=== PATIENT | female | born 1945 | race Hispanic/Latino ===

== ENCOUNTER 2017-02-09 07:27 | Inpatient (IN) | payer MEDICARE, MEDICAID ==
[2017-02-03 10:31] VITALS: BMI 19.5
[2017-02-09] MEDS ORDERED: Iodixanol 320 MG/ML 100 ML BOTTLE IV ONE ×2 (07:53→11:56)
[2017-02-09] MEDS ORDERED: Phenylephrine 10 mg/ml Inj ONE (08:02)
[2017-02-09] MEDS ORDERED: Dexmedetomidine Hydrochloride 100 mcg/ml (2ML) ONE (08:03)
[2017-02-09] MEDS ORDERED: ePHEDrine 50 mg/ml Inj ONE ×2 (08:03→14:47)
[2017-02-09] MEDS ORDERED: Succinylcholine Chloride 20 mg/ml Syr (5 ml) IV ONE (08:03)
[2017-02-09] MEDS ORDERED: Midazolam 2 MG/2 ML VIAL ONE ×5 (08:04→09:04)
[2017-02-09] MEDS ORDERED: Metoprolol 1 mg/ml Inj IVP ONE (08:04)
[2017-02-09] MEDS ORDERED: Lidocaine 2% Inj (20ml) ONE ×2 (08:52→08:56)
[2017-02-09] MEDS ORDERED: Iodixanol 320 MG/ML 200 ML BOTTLE IV ONE ×2 (10:01→11:55)
--- NOTE | 2017-02-09 10:44 | PCM.SURG1 ---
Surgeon's Initial Post Op Note - Surgeon's Notes Surgeon: joanie diehl Returned Materials Inspector: 0 Type of Anesthesia: IV Sedation Pre-Operative Diagnosis: chronic mesenteric ischemia Operative Findings: celiac open. 60-70% sma stenosis. domenic occluded Post-Operative Diagnosis: same Operation Performed: aortogram. balloon angioplasty and 7x19 stent to sma. perclose left axillary Specimen/Specimens Removed: 0 Estimated Blood Loss: EBL {In ML}: 25 Blood Products Given: N/A Drains Used: No Drains Post-Op Condition: Good Date of Surgery/Procedure: 02/09/17 Time of Surgery/Procedure: 10:44
[2017-02-09] MEDS ORDERED: HEPARIN-NS 5,000 UNITS/500 ML 500 ML IV ONE (12:30)
[2017-02-09] MEDS ORDERED: Propofol 10 mg/ml Inj (20 ML) ONE (12:39)
[2017-02-09] MEDS ORDERED: Rocuronium 10 mg/ml (5 ml) ONE ×2 (12:39→14:45)
[2017-02-09] MEDS ORDERED: Etomidate 20 mg/10ml Inj IV ONE (12:41)
[2017-02-09] MEDS ORDERED: Lactated Ringer's 1,000 ML IV ONE ×2 (13:15→14:45)
[2017-02-09] MEDS ORDERED: Sodium Chloride 0.9% 500 ML IV ONE (14:00)
[2017-02-09] MEDS ORDERED: Sodium Chloride 0.9% 1,000 ML IV ONE (15:30)
[2017-02-09] MEDS ORDERED: Thrombin Topical 20,000 Intl Units Spray Kit TOP ONE (15:48)
[2017-02-09] MEDS ORDERED: Neostigmine Methylsulfate 3mg/3ml Syringe IV ONE (15:49)
[2017-02-09] MEDS ORDERED: HYDROmorphone 0.5 mg/0.5 ml ISec IVP PRN (16:16)
--- NOTE | 2017-02-09 16:46 | CP.PCM.CON ---
<Turner Naranjo - Last Filed: 02/09/17 19:30> History of Present Illness - History of Present Illness History of Present Illness: CRITICAL CARE CONSULT NOTE 72 year old female with PMHx significant for anemia, PUD HCV and HIV presents s /p exploration and repair of L brachial artery with vein patch angioplasty for critical care monitoring. Patient briefly states that she had been experiencing abdominal pain associated with meals or several months . Patient states that the pain became so unbearable that she stopped eating regularly patient states that she visited her PMD who referred her to Dr. Benjamin for further indicated surgical management of symptoms. Currently patient is nauseous. Otherwise, she denies subjective fevers or chills, headaches, chest pain, palpitations, dyspnea , paresthesias, visual changes or abdominal pain at this time. PMHX- as noted above PSHX- hysterectomy, bilateral benign cysts in breasts, appendectomy, neck surgery, ankle surgery Fam Hx- Mom had Parkinson's disease and Alzhiemer's; Dad had emphysema Social- denies tobacco, alcohol or illicit drug use. Allergies- NKDA Review of Systems - Review of Systems Review of Systems: see subjective - Constitutional Constitutional: absent: Sleep Apnea, Weight Gain - EENT Eyes: absent: Blind Spots, Blurred Vision Ears: absent: Decreased Hearing, Ear Discharge Nose/Mouth/Throat: absent: Epistaxis, Nasal Congestion - Cardiovascular Cardiovascular: absent: Chest Pain, Chest Pain at Rest - Respiratory Respiratory: absent: Hemoptysis, Chest Congestion - Gastrointestinal Gastrointestinal: Nausea. absent: Vomiting - Genitourinary Genitourinary: absent: Change in Urinary Stream, Difficulty Urinating - Neurological Neurological: Tremor - Psychiatric Psychiatric: absent: Anhedonia, Anxiety, Confusion Past Patient History - Infectious Disease Hx of Infectious Diseases: None - Tetanus Immunizations Tetanus Immunization: Up to Date - Past Medical History & Family History Past Medical History?: Yes - Past Social History Smoking Status: Never Smoked - CARDIAC Hx Cardiac Disorders: No Hx Hypercholesterolemia: Yes Hx Hypertension: Yes Hx Hypotension: No Hx Pacemaker: No - PULMONARY Hx Respiratory Disorders: Yes Hx Bronchitis: Yes Hx Chronic Obstructive Pulmonary Disease (COPD): Yes Hx Emphysema: Yes Hx Tuberculosis: No - NEUROLOGICAL Hx Dementia: Yes Hx Dizziness: Yes Other/Comment: intermittent hand tremors "from anxiety" stated pt - HEENT Hx HEENT Problems: Yes (eyeglasses) Hx Cataracts: Yes Hx Glaucoma: Yes - RENAL Hx Chronic Kidney Disease: No - ENDOCRINE/METABOLIC Hx Endocrine Disorders: No Hx Diabetes Mellitus Type 2: Yes (borderline) - HEMATOLOGICAL/ONCOLOGICAL Hx Blood Disorders: Yes Hx Anemia: Yes Hx Cancer: No Hx Hepatitis C: Yes - INTEGUMENTARY Hx Dermatological Problems: No - MUSCULOSKELETAL/RHEUMATOLOGICAL Hx Musculoskeletal Disorders: Yes Hx Arthritis: Yes Hx Back Pain: Yes (chronic) Hx Degenerative Joint Disease: Yes Hx Falls: Yes Hx Fractures: Yes (LEFT BIG TOE IS FRACTURED) Hx Osteoporosis: Yes Hx Unsteady Gait: Yes (cane) Other/Comment: left ankle fx with plate and screws from fall around 8 yrs ago - GASTROINTESTINAL Hx Gastrointestinal Disorders: Yes Hx Gastritis: Yes Hx Gastroesophageal Reflux: No HX Swallowing Problems: Yes Hx Ulcer: Yes Other/Comment: mesenteric ischemia - GENITOURINARY/GYNECOLOGICAL Hx Genitourinary Disorders: Yes (ovarian cyst, urgency) Hx Sexually Transmitted Disorders: No Other/Comment: benign b/l breat lumps removed "yrs ago" - PSYCHIATRIC Hx Psychophysiologic Disorder: Yes Hx Anxiety: Yes Hx Depression: Yes Hx Substance Use: Yes (benzo) Other/Comment: sleep disorder - SURGICAL HISTORY Hx Surgeries: Yes Hx Appendectomy: Yes Hx Dilation and Curettage: Yes Hx Hysterectomy: Yes Hx Musculoskeletal Surgery: Yes (cervical laminectomy) Hx Open Reduction Internal Fixation: Yes (left) Hx Orthopedic Surgery: Yes (left ankle with scrrews from fall fx) Other/Comment: neck sx - ANESTHESIA Hx Anesthesia: Yes Hx Anesthesia Reactions: No Hx Malignant Hyperthermia: No Has any member of the family had a problem w/ anesthesia?: No Meds Allergies/Adverse Reactions: Allergies Allergy/AdvReac Type Severity Reaction Status Date / Time No Known Allergies Allergy Verified 12/17/16 07:37 - Medications Medications: Current Medications Lactated Ringer's (Lactated Ringer's) 1,000 mls @ 125 mls/hr IV .Q8H [facility] Physical Exam - Constitutional Appears: Non-toxic, No Acute Distress - Head Exam Head Exam: ATRAUMATIC, NORMAL INSPECTION, NORMOCEPHALIC - Eye Exam Eye Exam: EOMI, Normal appearance, PERRL Pupil Exam: NORMAL ACCOMODATION, PERRL - ENT Exam ENT Exam: Mucous Membranes Dry - Neck Exam Neck exam: Positive for: Full Rom - Respiratory Exam Respiratory Exam: NORMAL BREATHING PATTERN. absent: Clear to Auscultation Bilateral - Cardiovascular Exam Cardiovascular Exam: +S1, +S2 - GI/Abdominal Exam GI & Abdominal Exam: Normal Bowel Sounds, Soft. absent: Distended, Firm, Guarding - Extremities Exam Extremities exam: Positive for: full ROM. Negative for: joint swelling Additional comments: radial pulses felt b/l; dressing site c/d/i - Neurological Exam Neurological exam: Alert, CN II-XII Intact, Oriented x3 - Psychiatric Exam Psychiatric exam: Normal Affect, Normal Mood - Skin Skin Exam: Dry Additional comments: decreased skin turgor Results - Vital Signs Recent Vital Signs: Last Vital Signs Temp 98.8 F 02/09/17 07:48 Pulse 85 02/09/17 07:48 Resp 18 02/09/17 07:48 BP 143/87 02/09/17 07:48 Pulse Ox 99 02/09/17 07:48 - Labs Result Diagrams: 02/09/17 18:37 02/09/17 18:37 Labs: Laboratory Results - last 24 hr 02/09/17 13:45 Blood Type O POSITIVE Antibody Screen Negative Assessment & Plan - Assessment and Plan (Free Text) Assessment: 72 year old female with chronic mesenteric ischemia presents s/p exploration and repair of L brachial artery with vein patch angioplasty to ICU for critical care monitoring. Plan: Neuro: aaox3 Cardio: normotensive Cont to monitor Pulm: no focal airspace opacity noted on last CXR from 12/22/16 Incentive spirometry encouraged O2 as needed PRN GI: Regular diet Protonix due to hx of PUD Zofran PRN Nephro/; Monitor ins and outs GFR WNL MSK: PT/OT eval recommended Vasc: Plavix, ASA s/p procedure Cont to monitor management per surg Pain control- Pt w/ Hx of opioid use Prophylaxis: GI: PPI DVT: SCDs <Ken Mccoy - Last Filed: 02/10/17 10:22> Meds - Medications Medications: Current Medications Aspirin (Aspirin Chewable) 81 mg PO DAILY [facility] Clopidogrel Bisulfate (Plavix) 75 mg PO DAILY [facility] Hydromorphone HCl (Dilaudid) 1 mg IVP Q4H PRN PRN Reason: Pain, severe (8-10) Last Admin: 02/10/17 05:04 Dose: 1 mg Lactated Ringer's (Lactated Ringer's) 1,000 mls @ 125 mls/hr IV .Q8H BEST Last Admin: 02/10/17 00:12 Dose: 125 mls/hr Sodium Phosphate 15 mmole/ (Sodium Chloride) 255 mls @ 50 mls/hr IVPB .Q5H6M ONE Stop: 02/10/17 15:05 Ondansetron HCl (Zofran Inj) 4 mg IVP Q6H PRN PRN Reason: Nausea/Vomiting Last Admin: 02/10/17 07:00 Dose: 4 mg Pantoprazole Sodium (Protonix Ec Tab) 40 mg PO DAILY [facility] Results - Vital Signs Recent Vital Signs: Last Vital Signs Temp 98.4 F 02/10/17 09:37 Pulse 103 H 02/10/17 09:03 Resp 13 02/10/17 09:03 BP 150/80 02/10/17 09:03 Pulse Ox 100 02/10/17 09:03 - Labs Result Diagrams: 02/10/17 06:38 02/10/17 06:38 Labs: Laboratory Results - last 24 hr 02/09/17 02/09/17 02/10/17 13:45 18:37 06:38 WBC 7.8 D 5.3 RBC 3.46 L 2.88 L Hgb 9.2 L D 7.6 L Hct 28.2 L 23.3 L MCV 81.7 80.8 L MCH 26.6 L 26.2 L MCHC 32.6 L 32.5 L RDW 16.4 H 15.9 H Plt Count 109 L D 140 MPV 8.5 8.9 Neut % (Auto) 89.9 H 85.2 H Lymph % (Auto) 6.1 L 6.8 L [place] % (Auto) 3.7 7.9 Eos % (Auto) 0.1 0.0 Baso % (Auto) 0.2 0.1 Neut # 7.0 4.5 Lymph # 0.5 L 0.4 L [place] # 0.3 0.4 Eos # 0.0 0.0 Baso # 0.0 0.0 Neutrophils % (Manual) 92 H 89 H Lymphocytes % (Manual) 5 L 5 L Monocytes % (Manual) 3 6 Platelet Estimate Slightly decreased L Normal Hypochromasia (manual) Slight Poikilocytosis (manual Slight Slight Anisocytosis (manual) Slight Slight Microcytosis (manual) Slight Ovalocytes Slight Sodium 136 136 Potassium 3.4 L 4.1 Chloride 104 105 Carbon Dioxide 19 L 18 L Anion Gap 16 17 BUN 9 7 Creatinine 0.6 L 0.5 L Est GFR ( Amer) > 60 > 60 Est GFR (Non-Af Amer) > 60 > 60 Random Glucose 141 H 113 H Calcium 7.0 L 6.8 L Phosphorus 1.9 L 1.9 L Magnesium 1.7 1.5 L Total Bilirubin 0.7 0.5 AST 24 17 ALT 13 17 Alkaline Phosphatase 44 35 L D Total Protein 5.7 L 5.1 L Albumin 3.4 L D 2.9 L Globulin 2.4 2.2 Albumin/Globulin Ratio 1.4 1.3 Blood Type O POSITIVE Antibody Screen Negative Attending/Attestation - Attestation I have personally seen and examined this patient.: Yes I have fully participated in the care of the patient.: Yes I have reviewed all pertinent clinical information: Yes Notes (Text): patient seen and examined in the intensive care unit. 72 year old female with chronic mesenteric ischemia presents s/p exploration and repair of L brachial artery with vein patch angioplasty and balloon angioplasty and 7x19 stent to sma Transferred to ICU for critical care monitoring. follow-up CBC Continue present treatmentas per surgery
--- NOTE | 2017-02-09 16:54 | PCM.SURG1 ---
Surgeon's Initial Post Op Note - Surgeon's Notes Surgeon: Dr. Benjamin Drill Runner Helper: Dr. Bob PGY1, Dr. Snyder PGY1 Type of Anesthesia: General Endo Pre-Operative Diagnosis: occluded L brachial artery Operative Findings: see dictation Post-Operative Diagnosis: occluded L brachial artery Operation Performed: exploration and repair of L brachial artery with vein patch angioplasty Specimen/Specimens Removed: two Estimated Blood Loss: EBL {In ML}: 250 Blood Products Given: N/A Drains Used: No Drains Post-Op Condition: Good Date of Surgery/Procedure: 02/09/17 Time of Surgery/Procedure: 13:10
[2017-02-09] MEDS: Lactated Ringer's 1,000 ML IV SCH (17:00)
--- NOTE | 2017-02-09 17:24 | PCM.SURG1 ---
Surgeon's Initial Post Op Note - Surgeon's Notes Surgeon: markus Pe Teacher: 0 Type of Anesthesia: IV Sedation Anesthesia Administered By: staff Pre-Operative Diagnosis: left brachial occlusion Operative Findings: occlusion brachial artery at puncture site Post-Operative Diagnosis: same Operation Performed: arch aortogram. selective catherization of left subclavian artery Specimen/Specimens Removed: 0 Estimated Blood Loss: EBL {In ML}: 0 Blood Products Given: N/A Drains Used: No Drains Post-Op Condition: Good Date of Surgery/Procedure: 02/09/17 Time of Surgery/Procedure: 12:00 (after 1st and before surgery)
[2017-02-09 18:42] LABS: BASO % 0.2 % (0.0-2.0); EOS % 0.1 % (0.0-4.0); HEMATOCRIT 28.2 % (34.0-47.0); LYMPH # 0.5 K/uL (1.0-4.3); LYMPH % 6.1 % (20.0-40.0); MEAN CELL VOLUME 81.7 fL (81.0-99.0); MEAN CORPUSCULAR HEMOGLOBIN 26.6 pg (27.0-31.0); MEAN CORPUSCULAR HGB CONC 32.6 g/dL (33.0-37.0); MEAN PLATELET VOLUME 8.5 fL (7.2-11.7); MONO # 0.3 K/uL (0.0-0.8); MONO % 3.7 % (0.0-10.0); NRBC % 0.1 % (0.0-2.0); PLATELET COUNT 109 K/uL (130-400); RED CELL DISTRIBUTION WIDTH 16.4 % (11.5-14.5); WHITE BLOOD COUNT 7.8 K/uL (4.8-10.8)
[2017-02-09 18:53] LABS: CHLORIDE 104 mmol/L (98-107); SODIUM 136 mmol/L (132-148)
[2017-02-09 18:54] LABS: POTASSIUM 3.4 mmol/L (3.6-5.2)
[2017-02-09 18:55] LABS: GFR AFRICAN-AMERICAN > 60
[2017-02-09 18:56] LABS: ALB/GLOB RATIO 1.4 (1.0-2.1); ALKALINE PHOSPHATASE 44 U/L (38-126); ALT/SGPT 13 U/L (9-52); AST/SGOT 24 U/L (14-36); BILIRUBIN,TOTAL 0.7 mg/dL (0.2-1.3); BLOOD UREA NITROGEN 9 mg/dL (7-17); CARBON DIOXIDE 19 mmol/L (22-30); GLUCOSE,RANDOM 141 mg/dL (65-105); TOTAL PROTEIN 5.7 g/dL (6.3-8.3)
[2017-02-09 18:57] LABS: MAGNESIUM 1.7 mg/dL (1.6-2.3); PHOSPHOROUS 1.9 mg/dL (2.5-4.5)
[2017-02-09] MEDS: HYDROmorphone 1 mg/ml ISec IVP PRN ×2 (19:01→23:00)
[2017-02-09 19:55] LABS: NEUTROPHIL 92 % (50-75); TOTAL CELLS COUNTED 100
--- NOTE | 2017-02-09 20:13 | VAS ---
DATE: 02/09/2017 PREOPERATIVE DIAGNOSIS: Chronic mesenteric ischemia. POSTOPERATIVE DIAGNOSIS: Chronic mesenteric ischemia. PROCEDURE CARRIED OUT: Aortic angiogram with selective catheterization of superior mesenteric artery via left axillary artery. SURGEON: Elia Benjamin Jr., MD COSURGEON: Dr. Alcocer ANESTHESIOLOGIST: Staff anesthesiologist, Dr. Mcpherson. ANESTHESIA: Local with sedation. INDICATIONS: The patient is a 72-year-old woman, nonsmoker with a history of severe abdominal pain, 30-pound weight loss and postprandial nausea and vomiting. OPERATIVE FINDINGS: Preoperatively, studies including a duplex scan were inconclusive, but a CTA don e was highly suggestive of stenosis at both the origin of the celiac and the SMA, and occlusion of th e inferior mesenteric artery. OPERATIVE FINDINGS: There is no significant stenosis at the origin of the celiac artery. There is a 60%-70% stenosis of the superior mesenteric artery. The CORBY was occluded. This was successfully st ented with a 7 mm x 19 mm stent, good apposition. PROCEDURE: The patient was given local anesthesia. Using ultrasound guidance, the left axillary art marilyn was punctured and under fluoroscopic control, the guidewire advanced centrally. After this had b een advanced centrally, we then were able to go down to the aorta, placed a flush catheter just above the celiac axis and carried out an angiogram. There was some difficulty with the equipment due to t he tilt available and the obliquities available, so we could not get a true cross table lateral. Non etheless, we were able to obtain adequate visualization of the vessel. We then exchanged this for an 0.014 wire and then deployed a balloon expandable 7 x 19 stent at the origin of the superior mesente miri artery with excellent cosmetic results. We then deployed a Perclose in the arm. Pressure was applied to the site and the procedure was terminated. OPERATION CARRIED OUT: Aortogram with selective catheterization of the superior mesenteric artery, b alloon angioplasty and stenting of the superior mesenteric artery. Elia Benjamin Jr., MD cc: 56 TT: 02/09/2017 20:13:27 Confirmation # [id number] Dictation # [id number] en
--- NOTE | 2017-02-09 20:16 | VAS ---
DATE: 02/09/2017 PREOPERATIVE DIAGNOSIS: Occlusion left brachial artery. POSTOPERATIVE DIAGNOSIS: Occlusion left brachial artery. PROCEDURE CARRIED OUT: Arch aortogram with selective catheterization of left axillary and subclavian artery. SURGEON: Elia Benjamin Jr., MD COSURGEON: Dr. Alcocer ANESTHESIOLOGIST: Staff anesthesiologist, . The patient is a woman who underwent transaxillary puncture of her brachial/axillary artery for an an giogram with superior mesenteric artery stenting today. Postoperatively, she had a loss of flow in t he hand and this angiogram was undertaken to evaluate the site. There was an abrupt occlusion of the artery. However, there was flow distal to it, but despite the use of a number of wires, etc., we we re unable to cross this lesion and abandoned the procedure. The arch showed that there was an innomi abhilash artery, common carotid, and subclavian artery on the left side. There was no significant stenos is. There was an abrupt occlusion of the brachial artery at the site of the puncture. Distally, we were unable to advance the catheter distally to take pictures of the hand, but there was opacificatio n via collaterals. After completion of this, the catheter was withdrawn and pressure was applied to the site in the right groin. Elia Benjamin Jr., MD cc: 56 TT: 02/09/2017 20:16:30 Confirmation # [id number] Dictation # [id number] en
--- NOTE | 2017-02-09 20:20 | OP ---
PROCEDURE DATE: 02/09/2017 PREOPERATIVE DIAGNOSIS: Brachial artery occlusion. POSTOPERATIVE DIAGNOSIS: Brachial artery occlusion. PROCEDURE CARRIED OUT: Repair of brachial artery and basilic vein patch closure. SURGEON: Elia Benjamin Jr., MD GROUP RESERVATIONS COORDINATOR: Dr. Bob, resident ANESTHESIOLOGIST: ANESTHESIA: General anesthesia. INDICATIONS: The patient is a woman who underwent transaxillary and transfemoral angiography today for an occlusion of the brachial arterythat occurred while stenting the superior mesenteric artery, we were unable to cross this arm lesion or treat it endovascularly because of this and we proceeded with open surgical repair. OPERATIVE FINDINGS: There was approximately an inch long segment that was irregular after a Perclose device deployed had scrunched up the artery at this point. Perclose device was removed. A posterior hole closed in the artery. Clean ends were obtained above and below and an everted basilic vein patch was then sutured into position in this location with excellent apposition, good hemostasis and more importantly, palpable pulses distally to it. Because we had a palpable pulse distal to the site at the wrist, we did not carry out an angiogram, but stopped the procedure. Blood loss of the procedure was approximately 100 mL. OPERATION CARRIED OUT: Repair of left axillary/brachial artery with vein patch angioplasty. Elia Benjamin Jr., MD cc: 56 TT: 02/09/2017 20:20:00 en MTDD
[2017-02-10] MEDS: Lactated Ringer's 1,000 ML IV SCH ×2 (00:12→10:33)
[2017-02-10] MEDS: HYDROmorphone 1 mg/ml ISec IVP PRN ×2 (05:04→10:34)
[2017-02-10 06:47] LABS: BASO % 0.1 % (0.0-2.0); HEMATOCRIT 23.3 % (34.0-47.0); LYMPH # 0.4 K/uL (1.0-4.3); LYMPH % 6.8 % (20.0-40.0); MEAN CELL VOLUME 80.8 fL (81.0-99.0); MEAN CORPUSCULAR HEMOGLOBIN 26.2 pg (27.0-31.0); MEAN CORPUSCULAR HGB CONC 32.5 g/dL (33.0-37.0); MEAN PLATELET VOLUME 8.9 fL (7.2-11.7); MONO # 0.4 K/uL (0.0-0.8); MONO % 7.9 % (0.0-10.0); PLATELET COUNT 140 K/uL (130-400); RED CELL DISTRIBUTION WIDTH 15.9 % (11.5-14.5); WHITE BLOOD COUNT 5.3 K/uL (4.8-10.8)
[2017-02-10 07:03] LABS: CHLORIDE 105 mmol/L (98-107); SODIUM 136 mmol/L (132-148)
[2017-02-10 07:04] LABS: POTASSIUM 4.1 mmol/L (3.6-5.2)
[2017-02-10 07:05] LABS: GFR AFRICAN-AMERICAN > 60
[2017-02-10 07:06] LABS: ALB/GLOB RATIO 1.3 (1.0-2.1); ALKALINE PHOSPHATASE 35 U/L (38-126); ALT/SGPT 17 U/L (9-52); AST/SGOT 17 U/L (14-36); BILIRUBIN,TOTAL 0.5 mg/dL (0.2-1.3); BLOOD UREA NITROGEN 7 mg/dL (7-17); CALCIUM 6.8 mg/dl (8.6-10.4); CARBON DIOXIDE 18 mmol/L (22-30); GLUCOSE,RANDOM 113 mg/dL (65-105); PHOSPHOROUS 1.9 mg/dL (2.5-4.5); TOTAL PROTEIN 5.1 g/dL (6.3-8.3)
[2017-02-10 07:07] LABS: MAGNESIUM 1.5 mg/dL (1.6-2.3)
--- NOTE | 2017-02-10 08:51 | CP.CCUPN ---
CCU Objective - Vital Signs / Intake & Output Vital Signs (Last 4 hours): Vital Signs Pulse Resp BP Pulse Ox 02/10/17 05:03 92 H 22 131/64 100 02/10/17 05:00 101 H 13 100 Intake and Output (Last 8hrs): Intake & Output 02/09/17 02/10/17 02/10/17 22:59 06:59 14:59 Intake Total 780 1030 125 Output Total 0 1050 0 Balance 780 -20 125 Weight 112 lb 6.972 oz Intake: Intake, IV Amount 750 1000 125 Right Hand 750 1000 125 Oral 30 30 0 Output: Urine 0 1050 0 Urine, Voided 0 1050 0 Stool 0 0 0 - Medications Active Medications: Active Medications Generic Name Dose Route Start Last Admin Trade Name Freq PRN Reason Stop Dose Admin Aspirin 81 mg 02/10/17 10:00 Aspirin Chewable PO DAILY [facility] Clopidogrel Bisulfate 75 mg 02/10/17 10:00 Plavix PO DAILY [facility] Hydromorphone HCl 1 mg 02/09/17 17:00 02/10/17 05:04 Dilaudid IVP 1 mg Q4H PRN Administration Pain, severe (8-10) Lactated Ringer's 1,000 mls @ 125 mls/hr 02/09/17 16:30 02/10/17 00:12 Lactated Ringer's IV 125 mls/hr .Q8H BEST Administration Magnesium Sulfate/Dextrose 100 mls @ 200 mls/hr 02/10/17 08:50 Magnesium Sulfate 1 Gm/100 Ml D5w IVPB 02/10/17 09:19 ONCE ONE Sodium Phosphate 15 mmole/ 255 mls @ 50 mls/hr 02/10/17 08:50 Sodium Chloride IVPB 02/10/17 13:55 .Q5H6M ONE Ondansetron HCl 4 mg 02/09/17 17:00 02/10/17 07:00 Zofran Inj IVP 4 mg Q6H PRN Administration Nausea/Vomiting Pantoprazole Sodium 40 mg 02/10/17 10:00 Protonix Ec Tab PO DAILY [facility] - Patient Studies Lab Studies: Lab Studies 02/10/17 02/09/17 02/09/17 Range/Units 06:38 18:37 13:45 WBC 5.3 7.8 D (4.8-10.8) K/uL RBC 2.88 L 3.46 L (3.80-5.20) Mil/uL Hgb 7.6 L 9.2 L D (11.0-16.0) g/dL Hct 23.3 L 28.2 L (34.0-47.0) % MCV 80.8 L 81.7 (81.0-99.0) fL MCH 26.2 L 26.6 L (27.0-31.0) pg MCHC 32.5 L 32.6 L (33.0-37.0) g/dL RDW 15.9 H 16.4 H (11.5-14.5) % Plt Count 140 109 L D (130-400) K/uL MPV 8.9 8.5 (7.2-11.7) fL Neut % (Auto) 85.2 H 89.9 H (50.0-75.0) % Lymph % (Auto) 6.8 L 6.1 L (20.0-40.0) % [place] % (Auto) 7.9 3.7 (0.0-10.0) % Eos % (Auto) 0.0 0.1 (0.0-4.0) % Baso % (Auto) 0.1 0.2 (0.0-2.0) % Neut # 4.5 7.0 (1.8-7.0) K/uL Lymph # 0.4 L 0.5 L (1.0-4.3) K/uL [place] # 0.4 0.3 (0.0-0.8) K/uL Eos # 0.0 0.0 (0.0-0.7) K/uL Baso # 0.0 0.0 (0.0-0.2) K/uL Neutrophils % (Manual) 92 H (50-75) % Lymphocytes % (Manual) 5 L (20-40) % Monocytes % (Manual) 3 (0-10) % Platelet Estimate Slightly decreased L (NORMAL) Poikilocytosis (manual Slight Anisocytosis (manual) Slight Microcytosis (manual) Slight Sodium 136 136 (132-148) mmol/L Potassium 4.1 3.4 L (3.6-5.2) mmol/L Chloride 105 104 (98-107) mmol/L Carbon Dioxide 18 L 19 L (22-30) mmol/L Anion Gap 17 16 (10-20) BUN 7 9 (7-17) mg/dL Creatinine 0.5 L 0.6 L (0.7-1.2) MG/DL Est GFR ( Amer) > 60 > 60 Est GFR (Non-Af Amer) > 60 > 60 Random Glucose 113 H 141 H (65-105) mg/dL Calcium 6.8 L 7.0 L (8.6-10.4) mg/dl Phosphorus 1.9 L 1.9 L (2.5-4.5) mg/dL Magnesium 1.5 L 1.7 (1.6-2.3) mg/dL Total Bilirubin 0.5 0.7 (0.2-1.3) mg/dL AST 17 24 (14-36) U/L ALT 17 13 (9-52) U/L Alkaline Phosphatase 35 L D 44 (38-126) U/L Total Protein 5.1 L 5.7 L (6.3-8.3) g/dL Albumin 2.9 L 3.4 L D (3.5-5.0) g/dL Globulin 2.2 2.4 (2.2-3.9) gm/dL Albumin/Globulin Ratio 1.3 1.4 (1.0-2.1) Blood Type O POSITIVE Antibody Screen Negative Laboratory Results - last 24 hr 02/09/17 02/09/17 02/10/17 13:45 18:37 06:38 WBC 7.8 D 5.3 RBC 3.46 L 2.88 L Hgb 9.2 L D 7.6 L Hct 28.2 L 23.3 L MCV 81.7 80.8 L MCH 26.6 L 26.2 L MCHC 32.6 L 32.5 L RDW 16.4 H 15.9 H Plt Count 109 L D 140 MPV 8.5 8.9 Neut % (Auto) 89.9 H 85.2 H Lymph % (Auto) 6.1 L 6.8 L [place] % (Auto) 3.7 7.9 Eos % (Auto) 0.1 0.0 Baso % (Auto) 0.2 0.1 Neut # 7.0 4.5 Lymph # 0.5 L 0.4 L [place] # 0.3 0.4 Eos # 0.0 0.0 Baso # 0.0 0.0 Neutrophils % (Manual) 92 H Lymphocytes % (Manual) 5 L Monocytes % (Manual) 3 Platelet Estimate Slightly decreased L Poikilocytosis (manual Slight Anisocytosis (manual) Slight Microcytosis (manual) Slight Sodium 136 136 Potassium 3.4 L 4.1 Chloride 104 105 Carbon Dioxide 19 L 18 L Anion Gap 16 17 BUN 9 7 Creatinine 0.6 L 0.5 L Est GFR ( Amer) > 60 > 60 Est GFR (Non-Af Amer) > 60 > 60 Random Glucose 141 H 113 H Calcium 7.0 L 6.8 L Phosphorus 1.9 L 1.9 L Magnesium 1.7 1.5 L Total Bilirubin 0.7 0.5 AST 24 17 ALT 13 17 Alkaline Phosphatase 44 35 L D Total Protein 5.7 L 5.1 L Albumin 3.4 L D 2.9 L Globulin 2.4 2.2 Albumin/Globulin Ratio 1.4 1.3 Blood Type O POSITIVE Antibody Screen Negative Critical Care Progress Note - Nutrition Nutrition: Nutrition Category Date Time Status Regular Diet [DIET] Diets 02/09/17 Dinner Active
[2017-02-10 09:07] LABS: NEUTROPHIL 89 % (50-75); TOTAL CELLS COUNTED 100
[2017-02-10] MEDS ORDERED: Sodium Phosphate 15 MMOLE in Sodium Chloride 0.9% 250 ML IVPB ONE (10:00)
[2017-02-10] MEDS: Pantoprazole 40 mg EC Tab PO SCH (10:32)
--- NOTE | 2017-02-10 12:03 | CP.PCM.PN ---
Subjective - Date & Time of Evaluation Date of Evaluation: 02/10/17 Time of Evaluation: 12:03 - Subjective Subjective: dw hct 23.6 will recheck in am and dc if stable Objective - Vital Signs/Intake and Output Vital Signs (last 24 hours): Temp Pulse Resp BP Pulse Ox 98.4 F 103 H 13 150/80 100 02/10/17 09:37 02/10/17 09:03 02/10/17 09:03 02/10/17 09:03 02/10/17 09:03 Intake and Output: 02/10/17 02/10/17 06:59 18:59 Intake Total 1560 300 Output Total 1050 15 Balance 510 285 - Medications Medications: Current Medications Aspirin (Aspirin Chewable) 81 mg PO DAILY [facility] Last Admin: 02/10/17 10:32 Dose: 81 mg Clopidogrel Bisulfate (Plavix) 75 mg PO DAILY [facility] Last Admin: 02/10/17 10:32 Dose: 75 mg Hydromorphone HCl (Dilaudid) 1 mg IVP Q4H PRN PRN Reason: Pain, severe (8-10) Last Admin: 02/10/17 10:34 Dose: 1 mg Sodium Phosphate 15 mmole/ (Sodium Chloride) 255 mls @ 50 mls/hr IVPB .Q5H6M ONE Stop: 02/10/17 15:05 Last Admin: 02/10/17 10:33 Dose: 50 mls/hr Ondansetron HCl (Zofran Inj) 4 mg IVP Q6H PRN PRN Reason: Nausea/Vomiting Last Admin: 02/10/17 07:00 Dose: 4 mg Pantoprazole Sodium (Protonix Ec Tab) 40 mg PO DAILY [facility] Last Admin: 02/10/17 10:32 Dose: 40 mg - Labs Labs: 02/10/17 06:38 02/10/17 06:38
--- NOTE | 2017-02-10 12:04 | CP.PCM.PN ---
Subjective - Date & Time of Evaluation Date of Evaluation: 02/10/17 Time of Evaluation: 12:04 - Subjective Subjective: strong left wrist pulse no hematoma or bleeding Objective - Vital Signs/Intake and Output Vital Signs (last 24 hours): Temp Pulse Resp BP Pulse Ox 98.4 F 103 H 13 150/80 100 02/10/17 09:37 02/10/17 09:03 02/10/17 09:03 02/10/17 09:03 02/10/17 09:03 Intake and Output: 02/10/17 02/10/17 06:59 18:59 Intake Total 1560 300 Output Total 1050 15 Balance 510 285 - Medications Medications: Current Medications Aspirin (Aspirin Chewable) 81 mg PO DAILY [facility] Last Admin: 02/10/17 10:32 Dose: 81 mg Clopidogrel Bisulfate (Plavix) 75 mg PO DAILY [facility] Last Admin: 02/10/17 10:32 Dose: 75 mg Hydromorphone HCl (Dilaudid) 1 mg IVP Q4H PRN PRN Reason: Pain, severe (8-10) Last Admin: 02/10/17 10:34 Dose: 1 mg Sodium Phosphate 15 mmole/ (Sodium Chloride) 255 mls @ 50 mls/hr IVPB .Q5H6M ONE Stop: 02/10/17 15:05 Last Admin: 02/10/17 10:33 Dose: 50 mls/hr Ondansetron HCl (Zofran Inj) 4 mg IVP Q6H PRN PRN Reason: Nausea/Vomiting Last Admin: 02/10/17 07:00 Dose: 4 mg Pantoprazole Sodium (Protonix Ec Tab) 40 mg PO DAILY [facility] Last Admin: 02/10/17 10:32 Dose: 40 mg - Labs Labs: 02/10/17 06:38 02/10/17 06:38
--- NOTE | 2017-02-10 12:19 | CP.PCM.PN ---
Subjective - Date & Time of Evaluation Date of Evaluation: 02/10/17 Time of Evaluation: 10:00 Objective - Vital Signs/Intake and Output Vital Signs (last 24 hours): Temp Pulse Resp BP Pulse Ox 98.4 F 103 H 13 150/80 100 02/10/17 09:37 02/10/17 09:03 02/10/17 09:03 02/10/17 09:03 02/10/17 09:03 Intake and Output: 02/10/17 02/10/17 06:59 18:59 Intake Total 1560 300 Output Total 1050 15 Balance 510 285 - Medications Medications: Current Medications Aspirin (Aspirin Chewable) 81 mg PO DAILY [facility] Last Admin: 02/10/17 10:32 Dose: 81 mg Clopidogrel Bisulfate (Plavix) 75 mg PO DAILY [facility] Last Admin: 02/10/17 10:32 Dose: 75 mg Hydromorphone HCl (Dilaudid) 1 mg IVP Q4H PRN PRN Reason: Pain, severe (8-10) Last Admin: 02/10/17 10:34 Dose: 1 mg Sodium Phosphate 15 mmole/ (Sodium Chloride) 255 mls @ 50 mls/hr IVPB .Q5H6M ONE Stop: 02/10/17 15:05 Last Admin: 02/10/17 10:33 Dose: 50 mls/hr Ondansetron HCl (Zofran Inj) 4 mg IVP Q6H PRN PRN Reason: Nausea/Vomiting Last Admin: 02/10/17 07:00 Dose: 4 mg Pantoprazole Sodium (Protonix Ec Tab) 40 mg PO DAILY [facility] Last Admin: 02/10/17 10:32 Dose: 40 mg - Labs Labs: 02/10/17 06:38 02/10/17 06:38
[2017-02-10] MEDS: Oxycodone/Acetaminophen 5/325 mg Tab PO PRN ×3 (15:54→23:32)
[2017-02-11] MEDS: Oxycodone/Acetaminophen 5/325 mg Tab PO PRN ×3 (05:14→13:37)
[2017-02-11 07:03] LABS: MONO % 14.4 % (0.0-10.0); WHITE BLOOD COUNT 4.5 K/uL (4.8-10.8)
[2017-02-11 07:08] LABS: BASO % 0.3 % (0.0-2.0); EOS % 0.5 % (0.0-4.0); HEMATOCRIT 22.7 % (34.0-47.0); LYMPH % 21.5 % (20.0-40.0); MEAN CORPUSCULAR HEMOGLOBIN 26.1 pg (27.0-31.0); MEAN CORPUSCULAR HGB CONC 32.3 g/dL (33.0-37.0); MEAN PLATELET VOLUME 8.5 fL (7.2-11.7); MONO # 0.7 K/uL (0.0-0.8); RED CELL DISTRIBUTION WIDTH 16.2 % (11.5-14.5)
[2017-02-11 07:14] LABS: CHLORIDE 105 mmol/L (98-107)
[2017-02-11 07:15] LABS: POTASSIUM 3.7 mmol/L (3.6-5.2); SODIUM 138 mmol/L (132-148)
[2017-02-11 07:17] LABS: ALB/GLOB RATIO 1.4 (1.0-2.1); AST/SGOT 34 U/L (14-36); BILIRUBIN,TOTAL 0.7 mg/dL (0.2-1.3); BLOOD UREA NITROGEN 6 mg/dL (7-17); CARBON DIOXIDE 22 mmol/L (22-30); GFR AFRICAN-AMERICAN > 60; TOTAL PROTEIN 6.2 g/dL (6.3-8.3)
[2017-02-11 07:18] LABS: ALKALINE PHOSPHATASE 42 U/L (38-126); ALT/SGPT 24 U/L (9-52); GLUCOSE,RANDOM 94 mg/dL (65-105)
[2017-02-11 08:41] LABS: MAGNESIUM 2.3 mg/dL (1.6-2.3); PHOSPHOROUS 2.3 mg/dL (2.5-4.5)
--- NOTE | 2017-02-11 08:50 | CP.PCM.DIS ---
Provider - Provider Date of Admission: 02/09/17 16:44 Attending physician: Elia Benjamin Jr, MD Time Spent in preparation of Discharge (in minutes): 35 Hospital Course - Lab Results Lab Results: Micro Results 02/09/17 Unknown Naris MRSA Culture (Admit) - Final MRSA NOT DETECTED Most Recent Lab Values WBC 4.5 K/uL (4.8-10.8) L 02/11/17 06:58 RBC 2.80 Mil/uL (3.80-5.20) L 02/11/17 06:58 Hgb 7.3 g/dL (11.0-16.0) L 02/11/17 06:58 Hct 22.7 % (34.0-47.0) L 02/11/17 06:58 MCV 81.0 fL (81.0-99.0) 02/11/17 06:58 MCH 26.1 pg (27.0-31.0) L 02/11/17 06:58 MCHC 32.3 g/dL (33.0-37.0) L 02/11/17 06:58 RDW 16.2 % (11.5-14.5) H 02/11/17 06:58 Plt Count 120 K/uL (130-400) L D 02/11/17 06:58 MPV 8.5 fL (7.2-11.7) 02/11/17 06:58 Neut % (Auto) 63.3 % (50.0-75.0) 02/11/17 06:58 Lymph % (Auto) 21.5 % (20.0-40.0) 02/11/17 06:58 [place] % (Auto) 14.4 % (0.0-10.0) H 02/11/17 06:58 Eos % (Auto) 0.5 % (0.0-4.0) 02/11/17 06:58 Baso % (Auto) 0.3 % (0.0-2.0) 02/11/17 06:58 Neut # 2.9 K/uL (1.8-7.0) 02/11/17 06:58 Lymph # 1.0 K/uL (1.0-4.3) 02/11/17 06:58 [place] # 0.7 K/uL (0.0-0.8) 02/11/17 06:58 Eos # 0.0 K/uL (0.0-0.7) 02/11/17 06:58 Baso # 0.0 K/uL (0.0-0.2) 02/11/17 06:58 Neutrophils % (Manual) 89 % (50-75) H 02/10/17 06:38 Lymphocytes % (Manual) 5 % (20-40) L 02/10/17 06:38 Monocytes % (Manual) 6 % (0-10) 02/10/17 06:38 Differential Comment 02/11/17 06:58 Platelet Estimate Normal (NORMAL) 02/10/17 06:38 Hypochromasia (manual) Slight 02/10/17 06:38 Poikilocytosis (manual Slight 02/10/17 06:38 Anisocytosis (manual) Slight 02/10/17 06:38 Microcytosis (manual) Slight 02/09/17 18:37 Ovalocytes Slight 02/10/17 06:38 Sodium 138 mmol/L (132-148) 02/11/17 06:57 Potassium 3.7 mmol/L (3.6-5.2) 02/11/17 06:57 Chloride 105 mmol/L (98-107) 02/11/17 06:57 Carbon Dioxide 22 mmol/L (22-30) 02/11/17 06:57 Anion Gap 14 (10-20) 02/11/17 06:57 BUN 6 mg/dL (7-17) L 02/11/17 06:57 Creatinine 0.5 MG/DL (0.7-1.2) L 02/11/17 06:57 Est GFR ( Amer) > 60 02/11/17 06:57 Est GFR (Non-Af Amer) > 60 02/11/17 06:57 Random Glucose 94 mg/dL (65-105) 02/11/17 06:57 Calcium 7.0 mg/dl (8.6-10.4) L 02/11/17 06:57 Phosphorus 2.3 mg/dL (2.5-4.5) L 02/11/17 06:57 Magnesium 2.3 mg/dL (1.6-2.3) 02/11/17 06:57 Total Bilirubin 0.7 mg/dL (0.2-1.3) 02/11/17 06:57 AST 34 U/L (14-36) 02/11/17 06:57 ALT 24 U/L (9-52) 02/11/17 06:57 Alkaline Phosphatase 42 U/L (38-126) 02/11/17 06:57 Total Protein 6.2 g/dL (6.3-8.3) L 02/11/17 06:57 Albumin 3.6 g/dL (3.5-5.0) 02/11/17 06:57 Globulin 2.6 gm/dL (2.2-3.9) 02/11/17 06:57 Albumin/Globulin Ratio 1.4 (1.0-2.1) 02/11/17 06:57 Blood Type O POSITIVE 02/09/17 13:45 Antibody Screen Negative 02/09/17 13:45 - Hospital Course Hospital Course: 72 y/o F presented to [facility] for vascular procedure for chronic mesenteric ischemia. Procedure was successful in that celiac and SMA were cannulated and dilated. During closure of the vascular access site, the L brachial artery was thrombosed. Pt was taken to surgery for exploration and repair of L brachial artery. Strong pulses were palpated and heard on doppler in the OR prior to closing and leave the OR suite. Pt was admitted for observation. Pulses strong B/L UE, no hematoma present at surgical sites, and H/H has remained stable. Pt cleared for discharge to home. For full hospital course, see medical record. Discharge Exam - Head Exam Head Exam: ATRAUMATIC, NORMAL INSPECTION, NORMOCEPHALIC - Eye Exam Eye Exam: Normal appearance - ENT Exam ENT Exam: Mucous Membranes Moist - Respiratory Exam Respiratory Exam: NORMAL BREATHING PATTERN. absent: Accessory Muscle Use, Respiratory Distress - Cardiovascular Exam Cardiovascular Exam: REGULAR RHYTHM - GI/Abdominal Exam GI & Abdominal Exam: Soft. absent: Distended, Tenderness - Extremities Exam Additional comments: L upper arm dressings c/d/i R groin dressing c/d/i strong palpable pulse L radial no hematoma - Neurological Exam Neurological exam: Alert, Oriented x3 - Psychiatric Exam Psychiatric exam: Normal Affect, Normal Mood - Skin Skin Exam: Dry, Intact, Normal Color, Warm Discharge Plan - Follow Up Plan Condition: GOOD Disposition: HOME/ ROUTINE Patient education suggested?: Yes Instructions: Acute Abdominal Pain (DC), Acute Abdominal Pain (GEN), Anemia (DC ) Additional Instructions: continue all home meds, prescription given, follow up instruction in one week as an outpatient. Doctor Sourav
[2017-02-11] MEDS: Pantoprazole 40 mg EC Tab PO SCH (09:30)
--- NOTE | 2017-02-11 11:40 | CP.PCM.PN ---
Subjective - Date & Time of Evaluation Date of Evaluation: 02/11/17 Time of Evaluation: 11:39 - Subjective Subjective: strong pulse no hematoma dc home ultram fu 1 week Objective - Vital Signs/Intake and Output Vital Signs (last 24 hours): Temp Pulse Resp BP Pulse Ox 98.2 F 92 H 12 160/76 H 98 02/11/17 08:00 02/11/17 08:00 02/11/17 08:00 02/11/17 08:00 02/11/17 08:00 - Medications Medications: Current Medications Aspirin (Aspirin Chewable) 81 mg PO DAILY [facility] Last Admin: 02/11/17 09:30 Dose: 81 mg Clopidogrel Bisulfate (Plavix) 75 mg PO DAILY [facility] Last Admin: 02/11/17 09:31 Dose: 75 mg Ondansetron HCl (Zofran Inj) 4 mg IVP Q4H PRN PRN Reason: Nausea/Vomiting Last Admin: 02/11/17 09:29 Dose: 4 mg Oxycodone/Acetaminophen (Percocet 5/325 Mg Tab) 1 tab PO Q4H PRN PRN Reason: Pain, moderate (4-7) Stop: 02/13/17 12:43 Last Admin: 02/11/17 09:29 Dose: 1 tab Pantoprazole Sodium (Protonix Ec Tab) 40 mg PO DAILY [facility] Last Admin: 02/11/17 09:30 Dose: 40 mg - Labs Labs: 02/11/17 06:58 02/11/17 06:57
[2017-02-11 12:25] VITALS: BP 165/79; PULSE 97; RESP 15; TEMP 98.6; O2SAT 97
== END 2017-02-11 13:30 | disposition home or self-care (01) | DRG 357 ==
LOC: C.SPRAD 07:27 → C.9I 16:44
PROVIDERS: ADMIT Surgery Vascular Surgery; ATTEND Surgery Vascular Surgery
PROC: 04753DZ Dilation of Superior Mesenteric Artery with Intraluminal Device, Percutaneous Approach (ICD-10-PCS; 2017-02-09)
PROC: 03780ZZ Dilation of Left Brachial Artery, Open Approach (ICD-10-PCS; principal; 2017-02-09 08:00)
DX: K55.019 Acute (reversible) ischemia of small intestine, extent unspecified (principal); I74.8 Embolism and thrombosis of other arteries; F03.90 Unspecified dementia, unspecified severity, without behavioral disturbance, psychotic disturbance, mood disturbance, and anxiety; D64.9 Anemia, unspecified; I10 Essential (primary) hypertension; J43.9 Emphysema, unspecified; E78.00 Pure hypercholesterolemia, unspecified; R73.03 Prediabetes; B19.20 Unspecified viral hepatitis C without hepatic coma; Z21 Asymptomatic human immunodeficiency virus [HIV] infection status

== ENCOUNTER 2018-02-21 10:55 | Emergency (ER) | payer MEDICARE, MEDICAID ==
[2018-02-21 10:55] VITALS: BMI 21.2
[2018-02-21] MEDS ORDERED: Iohexol 240 (50 ml) PO STA (13:49)
[2018-02-21] MEDS ORDERED: Iohexol 240 (50 ml) ONE (14:02)
[2018-02-21 14:25] LABS: BASO % 0.4 % (0.0-2.0); EOS # 0.1 K/uL (0.0-0.7); EOS % 1.6 % (0.0-4.0); HEMOGLOBIN 12.5 g/dL (11.0-16.0); LYMPH # 1.5 K/uL (1.0-4.3); LYMPH % 24.8 % (20.0-40.0); MEAN CELL VOLUME 82.7 fL (81.0-99.0); MEAN CORPUSCULAR HEMOGLOBIN 28.3 pg (27.0-31.0); MEAN CORPUSCULAR HGB CONC 34.2 g/dL (33.0-37.0); MEAN PLATELET VOLUME 7.9 fL (7.2-11.7); MONO # 0.4 K/uL (0.0-0.8); MONO % 7.5 % (0.0-10.0); NEUT # 3.9 K/uL (1.8-7.0); NEUT % 65.7 % (50.0-75.0); NRBC % 0.1 % (0.0-2.0); RBC 4.41 Mil/uL (3.80-5.20); RED CELL DISTRIBUTION WIDTH 14.5 % (11.5-14.5)
[2018-02-21 14:28] LABS: SQUAMOUS EPITHIAL < 1 /hpf (0-5); URINE BILIRUBIN NEGATIVE (NEGATIVE); URINE BLOOD 1+ (NEGATIVE); URINE CLARITY Clear (Clear); URINE COLOR Yellow (YELLOW); URINE GLUCOSE (UA) NORMAL (Normal); URINE LEUKOCYTE ESTERASE NEG Leu/uL (Negative); URINE PROTEIN NEGATIVE (NEGATIVE); URINE UROBILINOGEN NORMAL mg/dL (0.2-1.0)
[2018-02-21 14:34] LABS: PROTHROMBIN TIME 11.6 SECONDS (9.7-12.2)
[2018-02-21 14:38] LABS: ALB/GLOB RATIO 1.2 (1.0-2.1); ALBUMIN 3.9 g/dL (3.5-5.0); ALT/SGPT 21 U/L (9-52); AST/SGOT 29 U/L (14-36); BLOOD UREA NITROGEN 11 mg/dL (7-17); CALCIUM 9.3 mg/dl (8.6-10.4); GFR AFRICAN-AMERICAN > 60; GFR NON-AFRICAN AMERICAN > 60; LIPASE 50 U/L (23-300)
[2018-02-21] MEDS ORDERED: Morphine 4 MG/ML VIAL ONE (14:40)
[2018-02-21 14:44] LABS: OPIATES, UR NEGATIVE (NEGATIVE); PHENCYCLIDINE, UR NEGATIVE (NEGATIVE)
--- NOTE | 2018-02-21 14:53 | C.PDOC ---
History Of Present Illness 73 y/o female with history of Stent in abdomen presents to ED with complaints of abdominal pain for 5 days and requesting detox from xanax. Patient states she took 8-10 2mg last night for pain and is concern for withdrawal symptoms. Patient denies n/v/d, fever, chills or any other complaints at this time. Time Seen by Provider: 02/21/18 12:30 Chief Complaint (Nursing): Abdominal Pain History Per: Patient History/Exam Limitations: no limitations Onset/Duration Of Symptoms: Days Current Symptoms Are (Timing): Still Present Past Medical History Reviewed: Historical Data, Nursing Documentation, Vital Signs Vital Signs: Last Vital Signs Temp 97.5 F L 02/21/18 11:25 Pulse 72 02/21/18 16:32 Resp 18 02/21/18 16:32 BP 152/81 H 02/21/18 16:32 Pulse Ox 99 02/21/18 17:20 - Medical History PMH: Anemia, Anxiety, Arthritis, Bronchitis, COPD, Dementia, Depression, Emphysema, Fractures (LEFT BIG TOE IS FRACTURED), Gastritis, Gastrointestinal Ulcer, HTN, Hypercholesterolemia, Osteoporosis Surgical History: Appendectomy, Endoscopy - [facility] Procedures ANESTH INJECT-SPIN CANAL (06/08/01) APPLICATION OF SPLINT (06/15/14) BREAST DX PROCEDURE NEC (08/30/03) CL FX REDUC-TIBIA/FIBULA (09/08/03) CLOSURE SKIN & SUBCUTANEOUS NEC (09/08/03) COLONOSCOPY (01/06/06) CONTR CEREBR ARTERIOGRAM (03/22/07) DETOXIFICATION SERVICES FOR SUBSTANCE ABUSE TREATMENT (12/22/16) DILATION OF LEFT BRACHIAL ARTERY, OPEN APPROACH (02/09/17) DILATION OF SUP MESENT ART WITH INTRALUM DEV, PERC APPROACH (02/09/17) ESOPHAGOGASTRODUODENOSCOPY [EGD] W/CLOSED BIOPSY (04/24/15) EXCISION OF STOMACH, ENDO, DIAGN (12/20/16) FASCIOTOMY (12/11/04) GROUP PSYCHOTHERAPY (12/22/16) IMMOBILIZ/WOUND ATTN NEC (08/02/06) INDIVIDUAL PSYCHOTHERAPY, SUPPORTIVE (12/22/16) INJECT STEROID (06/08/01) INJECT/INFUSE ELECTROLYT (07/31/14) INJECT/INFUSE NEC (04/13/15) INSERT INDWELLING CATH (08/04/14) LOC EXC LES METATAR/TAR (04/22/04) MAGNETIC RESONANCE IMAGING OF BRAIN AND BRAIN STEM (03/22/07) OCCUPATIONAL THERAPY (09/16/03) PERCUTAN NEEDLE BX OF LIVER (07/17/02) PHYSICAL THERAPY NEC (09/16/03) SPINAL CANAL INJECT NEC (06/08/01) SUBTOTAL MASTECTOMY (08/30/03) SUTURE OF LIP LACERATION (06/15/14) TARSAL TUNNEL RELEASE (04/22/04) Family History: States: No Known Family Hx - Social History Hx Tobacco Use: No Hx Alcohol Use: No Hx Substance Use: Yes () - Immunization History Hx Tetanus Toxoid Vaccination: No Hx Influenza Vaccination: Yes (2014) Hx Pneumococcal Vaccination: Yes Review Of Systems Constitutional: Negative for: Fever, Chills Gastrointestinal: Positive for: Abdominal Pain. Negative for: Nausea, Vomiting , Diarrhea Skin: Negative for: Rash Physical Exam - Physical Exam Appears: Non-toxic, Chronically Ill Skin: Warm, Dry, No Rash Head: Atraumatic, Normacephalic Eye(s): bilateral: Normal Inspection Oral Mucosa: Dry Neck: Normal ROM, Supple Cardiovascular: Rhythm Regular Respiratory: Normal Breath Sounds, No Rales, No Rhonchi, No Wheezing Gastrointestinal/Abdominal: Tenderness (Diffuse), No Guarding, No Rebound Back: No CVA Tenderness Extremity: Normal ROM, Capillary Refill (<2 seconds) Neurological/Psych: Oriented x3, Normal Speech, Normal Cognition ED Course And Treatment - Laboratory Results Result Diagrams: 02/21/18 14:20 02/21/18 14:20 O2 Sat by Pulse Oximetry: 99 (RA) Pulse Ox Interpretation: Normal Medical Decision Making Medical Decision Making: Patient given history of mesenteric ischemia, CT scan ordered 705 pm pt with neg ct for acute findings, shows constipation, pt sts she has miralax at home. pt re-examined and abdomen soft, nd, nt on re-exam and pt eating ice chips. pt is requesting detox, sts she has been on list since last . no beds available. d/c home. f/u pmd. Disposition Counseled Patient/Family Regarding: Studies Performed, Diagnosis, Need For Followup - Disposition Disposition: HOME/ ROUTINE Disposition Time: 19:11 Condition: GOOD Additional Instructions: drink more fluids eat high fiber food follow up wioth your docotr use miralax as prescribed Instructions: Constipation, Adult (DC), Polysubstance Abuse (DC) Forms: [facility] ([place]), General Discharge Instructions - Clinical Impression Clinical Impression: Constipation, Polysubstance (excluding opioids) dependence - PA / MEDICAL ARTIST / Resident Statement MD/DO has reviewed & agrees with the documentation as recorded. - Scribe Statement The provider has reviewed the documentation as recorded by the Dayronibmir Wilkins All medical record entries made by the Keyonna were at my direction and personally dictated by me. I have reviewed the chart and agree that the record accurately reflects my personal performance of the history, physical exam, medical decision making, and the department course for this patient. I have also personally directed, reviewed, and agree with the discharge instructions and disposition.
[2018-02-21 15:09] LABS: BARBITURATES, UR POSITIVE (NEGATIVE); BENZODIAZEPINES, UR POSITIVE (NEGATIVE)
[2018-02-21] MEDS ORDERED: Iohexol 300 100 ML IJ ONE (16:10)
--- NOTE | 2018-02-21 18:35 | CT ---
PROCEDURE: CT Abdomen and Pelvis with contrast HISTORY: diffuse pain, hx mesenteric ischemis COMPARISON: None. TECHNIQUE: Contrast dose: Omnipaque 300, 100 cc Radiation dose: Total exam DLP = 240.53 mGy-cm. This CT exam was performed using one or more of the following dose reduction techniques: Automated exposure control, adjustment of the mA and/or kV according to patient size, and/or use of iterative reconstruction technique. FINDINGS: LOWER THORAX: A small hiatal hernia is identified. No pleural or pericardial effusion. LIVER: There is borderline hepatomegaly. No focal hepatic mass is seen or definite intrahepatic biliary duct dilatation. GALLBLADDER AND BILE DUCTS: Unremarkable. PANCREAS: An atrophic pancreas appreciated, particularly at the body and tail. No definite pancreatic mass is identified. No peripancreatic reaction. SPLEEN: Unremarkable. ADRENALS: Unremarkable. No mass. KIDNEYS AND URETERS: Unremarkable. No hydronephrosis. No solid mass. VASCULATURE: A non aneurysmal but atherosclerotic abdominal aorta is identified with a wall stent identified at the origin and proximal few cm of the superior mesenteric artery which nevertheless appears patent and enhances following contrast administration. The abdominal aorta is patent through its bifurcation with the inferior mesenteric artery not clearly identified. BOWEL: The stomach is collapsed. There is no bowel obstruction appreciated. Limited fecal loading is seen throughout various large-bowel segments with the majority of the colon appearing collapsed. APPENDIX: Appendix not identified. No CT evidence of appendicitis. PERITONEUM: Unremarkable. No free fluid. No free air. LYMPH NODES: Unremarkable. No enlarged lymph nodes. BLADDER: Unremarkable. REPRODUCTIVE: Prior hysterectomy suggested. BONES: Grade 1 spondylolisthesis L4-5 with advanced multilevel degenerative thoracic spondylosis and mild multilevel inferior lumbar spondylosis. A minimal compression fracture of T11 is questioned, age indeterminate. OTHER FINDINGS: None. IMPRESSION: 1. Prior Wallstent is seen at the origin and 1st couple centimeters of the proximal SMA with the estimate appearing to enhance and less without significant stenosis appreciable grossly. The inferior mesenteric artery is not well identified. Abdominal aorta is widely patent though somewhat atherosclerotic, through its bifurcation. 2. Borderline hepatomegaly. No discrete hepatic mass appreciable. 3. Other lesser findings as discussed above including prior hysterectomy.
[2018-02-21 19:26] VITALS: BP 151/92; PULSE 88; RESP 20; TEMP 99.1; O2SAT 100
== END 2018-02-21 19:25 | disposition home or self-care (01) ==
LOC: C.ER 10:55
DX: K59.00 Constipation, unspecified (principal); F19.20 Other psychoactive substance dependence, uncomplicated; I10 Essential (primary) hypertension; E78.00 Pure hypercholesterolemia, unspecified; D64.9 Anemia, unspecified; F03.90 Unspecified dementia, unspecified severity, without behavioral disturbance, psychotic disturbance, mood disturbance, and anxiety
CPT/HCPCS: 74177; 80053; 81001; 83605; 83690; 85025; 85610; 85730; 86850; 86900; 96374; 96375; 99285; G0480; J2270; J2405; Q9967